=== PATIENT | female | born 1950 | race African-American/Black ===

== ENCOUNTER 2017-10-26 13:15 | Outpatient (CLI) | payer MEDICARE, OTHER | END 2017-10-26 13:16 | disposition home or self-care (01) | LOC: BICMAMMO 13:15 | PROVIDERS: ATTEND Family Medicine | DX: Z12.31 Encounter for screening mammogram for malignant neoplasm of breast (principal); Z13.820 Encounter for screening for osteoporosis; R92.1 Mammographic calcification found on diagnostic imaging of breast | CPT/HCPCS: 77063; 77067; 77080 ==

== ENCOUNTER 2019-06-15 10:31 | Outpatient (CLI) | payer MEDICARE, OTHER ==
--- NOTE | 2019-06-15 13:32 | MMO ---
Bilateral MAMMO Bilat Screen [facility]. CLINICAL HISTORY: Patient is 68 years old and is seen for screening. The patient has no family history of breast cancer. The patient has no personal history of cancer. VIEWS: The views performed were: bilateral craniocaudal with tomosynthesis and bilateral mediolateral oblique with tomosynthesis. FILMS COMPARED: The present examination has been compared to prior imaging studies performed at [facility] on 01/06/2011, 06/12/2015 and 10/26/2017. This study has been interpreted with the assistance of computer-aided detection. MAMMOGRAM FINDINGS: There are scattered fibroglandular densities. Finding 1: There are stable benign appearing calcifications seen in both breasts. Finding 2: There are stable intramammary lymph nodes seen in both breasts. There are no suspicious masses, suspicious calcifications, or new areas of architectural distortion. IMPRESSION: THERE IS NO MAMMOGRAPHIC EVIDENCE OF MALIGNANCY. A ROUTINE FOLLOW-UP MAMMOGRAM IN 1 YEAR IS RECOMMENDED. THE RESULTS OF THIS EXAM WERE SENT TO THE PATIENT. ACR BI-RADS Category 2 - Benign finding MAMMOGRAPHY NOTE: 1. A negative mammogram report should not delay a biopsy if a dominant of clinically suspicious mass is present. 2. Approximately 10% to 15% of breast cancers are not detected by mammography. 3. Adenosis and dense breasts may obscure an underlying neoplasm. Reported by: KAILA DURAN MD Electonically Signed: [id number]
== END 2019-06-15 10:32 | disposition home or self-care (01) ==
LOC: BICMAMMO 10:31
PROVIDERS: ATTEND Family Medicine
DX: Z12.31 Encounter for screening mammogram for malignant neoplasm of breast (principal)
CPT/HCPCS: 77063; 77067

== ENCOUNTER 2020-05-05 12:50 | Observation (INO) | payer MEDICARE ==
--- NOTE | 2020-05-05 13:23 | PDOC.FPRHP ---
- History of Present Illness Chief Complaint: vertigo History of Present Illness: Patient is a 69-year-old female who presents as a transfer from [place] emergency department for further evaluation of new onset vertigo, mild hypokalemia, and a new small 8 mm right sided temporal hyperdensity seen on CT scan. Patient states that she stood up this morning and she felt like the room started spinning. Noted that the vertigo is worse when she moves around quickly, especially when sitting up or standing up. She notes that she has accompanying nausea, and states that she gets a "teeth-rattling" sound in her right ear with certain position changes and feels that she is hearing a little less out of that ear. Patient states she has some blurred vision when reading up close lately. Patient denies new CP, shortness of breath, denies any weakness or numbness in her arms or legs, no syncope. Patient was given potassium, aspirin, fluids in the previous ED. Patient denies history of intracranial mass. No history of cancers. No recent infections, f/chills, abdominal pain. ED Course: In the outisde ED givem 8mg zofran, 40 KCl, 325 Aspirin and 25 Meclizine - Allergies/Adverse Reactions Allergies Allergy/AdvReac Type Severity Reaction Status Date / Time lisinopril Allergy Severe edema, Verified 08/06/19 11:46 facial swelling - Home Medications Medication Instructions Recorded Confirmed Type Cholecalciferol (Vitamin D3) 5,000 unit PO DAILY 12/16/15 05/05/20 History [Vitamin D3] Pantoprazole [Protonix] 40 mg PO DAILY 12/16/15 05/05/20 History Albuterol Sulfate 1.25 mg NEB [id number] PRN 05/05/20 05/05/20 History Albuterol Sulfate HFA (OR) 1 - 2 puff INH TID PRN 05/05/20 05/05/20 History [Proventil Hfa (or)] Aspirin [Aspirin EC] 81 mg PO DAILY 05/05/20 05/05/20 History Fluticasone/Umeclidin/Vilanter 1 each IH DAILY 05/05/20 05/05/20 History [Trelegy Ellipta 100-62.5-25] Linaclotide [Linzess] 145 mcg PO DAILY-AC 05/05/20 05/05/20 History Losartan [Cozaar] 100 mg PO DAILY 05/05/20 05/05/20 History Metoprolol Succinate 25 mg PO DAILY 05/05/20 05/05/20 History - History PMHx: HTN, COPD, CKD3, IBS, GERD, obesity PSHx: none FHx: non-contributory Social: no alcohol, smoking, or drug use - Review of Systems General: denies: fever/chills, weight/appetite/sleep changes Eyes: reports: vision changes (recent blurred vision when reading up close). denies: eye pain ENT: denies: nasal congestion, rhinorrhea Respiratory: denies: congestion Cardiovascular: denies: chest pain, palpitation, edema Gastrointestinal: reports: nausea. denies: vomiting, diarrhea, abdominal pain Genitourinary: denies: incontinence, dysuria, discharge Skin: denies: rashes, lesions Musculoskeletal: denies: pain, tenderness Neurological: reports: other (dizziness). denies: numbness, syncope, seizure, weakness - Vital signs BP: 163/103, MAP: 123, Pulse: 65, Resp: 18, O2 sat: 99 on (Room Air) - Physical Exam Constitutional: NAD, awake, alert and oriented, well developed HEENT: normocephalic and atraumatic, PERRLA, MMM Neck: supple, FROM Heart: RRR, normal S1/S2, no murmurs/rubs/gallops, pulses present, no edema Lungs: CTAB, no respiratory distress Abdomen: soft, non-tender, bowel sounds present Musculoskeletal: normal structure, normal tone Neurological: no focal deficit, CN II-XII intact (reported mildly decreased hearing in R ear on exam), normal sensation, other Skin: no rash/lesions, good turgor Heme/Lymphatic: no unusual bruising or bleeding, no purpura Psychiatric: normal mood and affect, good judgment and insight, intact recent and remote memory FMR H&P: Results - Labs Result Diagrams: 05/06/20 04:44 - EKG Interpretation EKG: SR 67, t wave inversion V5-V6, no ST elevation - Radiology Interpretation CT scan - head Status: report reviewed by me (8mm R temporal hyperdense focus, likely meningioma, noemergent follow-up MRI w/ & W/o contrast recommended) FMR H&P: A/P - Plan Benign Vertigo suspected 2/2 Orthostatic Hypotension vs BPPV Nalini-Hallpike negative Appears to be associated with sitting up or standing up - orthostatics ordered - meclizine prn for dizziness - zofran prn for nausea - consider ENT follow up on d/c Hypokalemia K 3.1 - s/p 40 meq KCl PO repleted at [place] - will monitor with am BMP Incidental Hyperdense foci on CT, suspected meningioma CT Brain: 8mm R temporal hyperdense focus, likely meningioma, noemergent follow- up MRI w&wo contrast recommended - ordered MRI HTN - continue home meds COPD CXR: no acute findings - continue home meds CKD3 BUN/Cr 06/06., GFR 59 appears baseline - patient has first appointment scheduled with nephro in May 2020 - continue to monitor with am labs IBS - continue home meds GERD - continue home meds Code status: FULL PCP: Martinez IVF: SL DVT PPx: lovenox Dispo: admit stroke lobs, LOS likely <48 hours FMR H&P: Upper Level - Plan Date/Time: 05/05/20 1323 I, [], have evaluated this patient and agree with findings/plan as outlined by physician/internist resident. Pertinent changes/additions are listed here. Addendum - Attending - Attending Attestation Date/Time: 05/06/20 0738 Late entry for 05/05 afternoon. I personally evaluated the patient and discussed the management with Dr. Giordano/Theron. H&P repeated by me I agree with the History, Examination, Assessment and Plan documented above with any addition or exceptions noted below. Vertigo- unclear etiology as [place] Hallpike negative. Will check orthostatics. Meclinizine and zofran prn Incidental finding on CT_ Will get MRI while in the hospital. Expect d/c tomorrow.
[2020-05-05 15:03] VITALS: BMI 37.5
[2020-05-05] MEDS ORDERED: Ondansetron ODT 4 MG TAB PO PRN (15:27)
[2020-05-05] MEDS ORDERED: Meclizine HCl 12.5 MG TAB PO PRN (15:32)
[2020-05-05] MEDS ORDERED: Albuterol Sulfate 1.25 MG/3 ML NEB NEB PRN (17:59)
[2020-05-05] MEDS ORDERED: Non-Formulary Item 1 EACH (Albuterol Sulfate Hfa (Or) 200 PUFF Inh) INH PRN (19:00)
[2020-05-05 23:59] LABS: SARS-CoV-2 MS2 Positive; SARS-CoV-2 N Gene Negative; SARS-CoV-2 S Gene Negative; SARS-CoV-2 by NAA Not Detected (NotDetected); SARS-CoV-2 orf1ab Negative
[2020-05-06 05:23] LABS: Anion Gap 13 mmol/L (10-20); BUN (Urea Nitrogen) 21 mg/dL (9.8-20.1); Calc. Creatinine Clearance 65 mL/min (70-130); Calcium 7.9 mg/dL (7.8-10.44); Carbon Dioxide 26 mmol/L (23-31); Chloride 107 mmol/L (98-107); Glucose 89 mg/dL (80-115); Potassium 3.4 mmol/L (3.5-5.1); Sodium 143 mmol/L (136-145)
--- NOTE | 2020-05-06 06:16 | PDOC.FM ---
- Subjective Subjective: Ms. Shannon is doing better this morning. She is complaining of a R sided GUIDRY. She states HAs are not normal for her but she cannot tell me when she started having this one. She continues to deny dizziness at rest. She endorses blurry vision but is unable to tell me when it occurs or if it is normal for her. - Objective Vital Signs & Weight: Vital Signs (12 hours) Temp Pulse Resp BP Pulse Ox 05/06/20 03:48 98.3 F 69 16 129/80 98 05/05/20 23:46 98.1 F 71 16 120/75 95 05/05/20 19:57 98.4 F 65 18 137/84 99 Weight Weight 92.986 kg I&O: 05/04/20 05/05/20 05/06/20 06:59 06:59 06:59 Intake Total 470 Balance 470 Result Diagrams: 05/06/20 04:44 Phys Exam - Physical Examination Constitutional: NAD Neck: supple, full ROM Respiratory: clear to auscultation bilateral Cardiovascular: RRR, no significant murmur Neurological: non-focal, moves all 4 limbs Psychiatric: normal affect, A&O x 3 Dx/Plan - Plan Plan: This is a 69F who was transferred from [place] ED for vertigo, hypodensity on CT, and hypokalemia. Benign Vertigo Suspected 2/2 Orthostatic Hypotension vs BPPV vs Meniere's disease - [place]-Hallpike negative - Appears to be associated with sitting up or standing up * orthostatics neg - meclizine prn for dizziness - zofran prn for nausea - consider ENT follow up on d/c Hypokalemia K 3.1 -> 3.4 - 40mEq KCl PO - BMP at noon since expected d/c today Incidental Hyperdense foci on CT Suspected meningioma - CT Brain: 8mm R temporal hyperdense focus, likely meningioma, non-emergent follow-up MRI w&wo contrast recommended - MRI pending HTN - continue home meds - monitor COPD - CXR: no acute findings - continue home meds CKD3 BUN/Cr 06/06.11, GFR 59 appears baseline - patient has first appointment scheduled with nephro in May 2020 - continue to monitor with am labs IBS - continue home meds GERD - continue home meds Code status: FULL PCP: Martinez IVF: SL DVT PPx: lovenox Dispo: admit stroke obs, discharge pending MRI results.
[2020-05-06] MEDS ORDERED: (Linaclotide [Linzess] 145 MCG Capsule) PO SCH (07:30)
[2020-05-06] MEDS ORDERED: Potassium Chloride 20 MEQ TAB PO SCH (08:00)
[2020-05-06] MEDS ORDERED: Cholecalciferol 1,000 UNITS (25 MCG) TAB PO SCH (09:00)
[2020-05-06] MEDS ORDERED: Aspirin 81 mg Enteric Coated Tablet PO SCH (09:00)
[2020-05-06] MEDS ORDERED: Non-Formulary Item 1 EACH (Fluticasone/Umeclidin/Vilanter [Trelegy Ellipta 100-62.5-25] 1 IH SCH (09:00)
[2020-05-06] MEDS ORDERED: Losartan 25 MG TAB PO SCH (09:00)
[2020-05-06] MEDS ORDERED: Enoxaparin Sodium 40 MG/0.4 ML SYRINGE SC SCH (09:00)
--- NOTE | 2020-05-06 10:13 | MRI ---
MRI of thebrain with and without contrast: 05/06/2020 COMPARISON:Head CT 05/05/2020 HISTORY:Evaluate right temporal lesion seen on previous CT TECHNIQUE: Multiplanar multisequence MR imaging of thebrain with and without contrast Findings:The diffusion weighted imaging demonstrates no evidence for acute infarction. Axial gradient echo imaging demonstrates blooming artifact within the basal ganglia bilaterally, likely on the basis of calcification. Dural calcifications are noted as well. No evidence for acute intracranial he morrhage. No midline shift or mass effect. No ventricular enlargement. Extensive multifocal periventricular, de ep, and subcortical white matter T2 and FLAIR hyperintensity noted, evidence of small vessel disease. Imaged paranasal sinuses and mastoid air cells demonstrate normal signal intensity. Arterial flow voids at the axial level of the skull base appear unremarkable on the T2-weighted imaging. There is an extra-axial lesion lateral to the anterior aspect of the right temporal lobe measuring 9 mm. Blooming artifact associated with this lesion is evidence of calcification. The lesion demonstrates avid enhancement with a dural tail, consistent with a meningioma. Postcontrast imaging d emonstrates no abnormal enhancement within the brain parenchyma. IMPRESSION:Avidly enhancing extra-axial right temporal lesion consistent with meningioma. No acute in farction.
[2020-05-06] MEDS ORDERED: Magnevist 469MG/ML 20 ML VIAL ONE (10:50)
[2020-05-06 11:58] VITALS: BP 143/76; TEMP 98.1
--- NOTE | 2020-05-07 02:45 | DIS ---
DATE OF ADMISSION: 05/05/2020 DATE OF DISCHARGE: 05/06/2020 CONSULT: None. PROCEDURES: Brain CT at [facility] (05/05) showing a small 8 mm right-sided temporal hyperdensity. Brain MRI (05/06) showing a 9 mm extra-axial lesion lateral to the anterior aspect of the right temporal lobe consistent with a meningioma. PRIMARY DIAGNOSES: Benign vertigo, hypokalemia, incidental mass with a meningioma. SECONDARY DIAGNOSES: Hypertension, chronic obstructive pulmonary disease, chronic kidney disease 3, irritable bowel syndrome, gastroesophageal reflux disease, obesity. DISCHARGE MEDICATIONS: 1. Meclizine 12.5 mg p.o. b.i.d. p.r.n. 2. Potassium chloride 20 mEq p.o. daily. 3. Zofran 4 mg p.o. q.6 p.r.n. 4. Vitamin D3 5000 units p.o. daily. 5. Protonix 40 mg p.o. daily. 6. Losartan 50 mg p.o. daily (confirmed with Dr. Henriquez). 7. Metoprolol succinate 25 mg p.o. daily. 8. Albuterol nebulizers q.8 h. p.r.n. 9. Proventil 1 to 2 puffs inhalation t.i.d. p.r.n. 10. Linzess 145 mcg p.o. daily before food. 11. Trilogy 1 inhalation daily. 12. Aspirin 81 mg p.o. daily. 13. Amlodipine 10 mg p.o. daily. Discontinued medications: 1. Losartan 25 mg p.o. daily (had just been discontinued by Dr. Henriquez). HISTORY OF PRESENT ILLNESS/HOSPITAL COURSE: This is a 69-year-old female who presented as a transfer from [facility] for further evaluation of new onset vertigo, mild hypokalemia, and a new hyperdensity seen on CT. The patient stated she had been feeling dizzy since that morning. Symptoms were worse when she moved around quickly, especially when sitting up or standing up. Accompanying symptoms include nausea and a "teeth rattling" sound in her right ear with certain position changes, as well as mild hearing loss out of the right ear. In the ED, Nalini-Hallpike maneuver was negative ruling out BPPV. Orthostatic vitals were obtained and were also negative, ruling out orthostatic hypotension. Given the negative results of these tests, as well as the combination of vestibular and auditory symptoms, the diagnosis we suspect is Meniere disease. The patient arrived with a potassium of 3.1 despite repletion at [facility]. Repeat a.m. BNP showed a potassium of 3.4, so her potassium was repleted again. The patient is going to be sent home on potassium supplementation until she meets with her PCP, Dr. Henriquez for repeat BMP and follow up of this hypokalemia. Lastly, a CT was obtained in the [facility] ED, which showed a hyperdensity in the right temporal region. As such, a brain MRI with and without contrast was obtained, which confirmed an extra-axial lesion lateral to the anterior aspect of the right temporal lobe measuring 9 mm and consistent with a meningioma. Due to a lack of symptoms associated with this incidentally found meningioma, the patient was discharged with instructions to follow up with her PCP for observation. DISPOSITION: Stable. DISCHARGE INSTRUCTIONS: 1. Location, home. 2. Diet: Heart healthy, renal diet. 3. Activity as tolerated. 4. Followup. An appointment was made for the patient with her PCP, Dr. Henriquez, in 1 to 2 days. Job ID: [id number]
== END 2020-05-06 14:16 | disposition home or self-care (01) ==
LOC: ERS 12:50 → 2SE 13:19
PROVIDERS: ADMIT Family Medicine; ATTEND Family Medicine
DX: R42 Dizziness and giddiness (principal); E87.6 Hypokalemia; D32.9 Benign neoplasm of meninges, unspecified; I12.9 Hypertensive chronic kidney disease with stage 1 through stage 4 chronic kidney disease, or unspecified chronic kidney disease; N18.30 Chronic kidney disease, stage 3 unspecified; J44.9 Chronic obstructive pulmonary disease, unspecified; K58.9 Irritable bowel syndrome, unspecified; K21.9 Gastro-esophageal reflux disease without esophagitis; E66.9 Obesity, unspecified; Z68.37 Body mass index [BMI] 37.0-37.9, adult; Z87.891 Personal history of nicotine dependence; Z79.82 Long term (current) use of aspirin; Z79.899 Other long term (current) drug therapy; Z88.8 Allergy status to other drugs, medicaments and biological substances; Z20.828 Contact with and (suspected) exposure to other viral communicable diseases
CPT/HCPCS: 70553; 80048; 93005; 96372; 99285; G0378 ×3; U0003; 36415; 87635; A9579; J1650

== ENCOUNTER 2021-06-12 10:23 | Outpatient (CLI) | payer MEDICARE | END 2021-06-12 10:24 | disposition home or self-care (01) | LOC: BICMAMMO 10:23 | PROVIDERS: ATTEND Family Medicine | DX: Z12.31 Encounter for screening mammogram for malignant neoplasm of breast (principal) | CPT/HCPCS: 77063; 77067 ==

== ENCOUNTER 2023-01-28 11:02 | Outpatient (CLI) | payer OTHER | END 2023-01-28 11:03 | disposition home or self-care (01) | LOC: BICMAMMO 11:02 | PROVIDERS: ATTEND Family Medicine | DX: Z12.31 Encounter for screening mammogram for malignant neoplasm of breast (principal) | CPT/HCPCS: 77063; 77067 ==

== ENCOUNTER 2023-03-02 10:55 | Outpatient (CLI) | payer OTHER | END 2023-03-02 10:56 | disposition home or self-care (01) | LOC: ULT 10:55 | PROVIDERS: ATTEND Internal Medicine Nephrology | DX: N18.9 Chronic kidney disease, unspecified (principal) | CPT/HCPCS: 76770 ==